=== PATIENT | female | born 1995 | race African-American/Black ===

== ENCOUNTER 2022-11-02 20:01 | Emergency (ER) | payer MEDICAID, OTHER ==
[~2022-11-02] VITALS: Ht 167.7 cm; Wt 76.7 kg
[2022-11-02 20:10] VITALS: BP 133/83
[2022-11-02 20:31] LABS: BILIRUBIN,URINE NEGATIVE (NEGATIVE); COLOR,URINE YELLOW; GLUCOSE, URINE (UA) NEGATIVE (NEGATIVE); KETONES,URINE TRACE (NEGATIVE); LEUKOCYTE ESTERASE ,URINE 1+ (NEGATIVE); NITRITE,URINE NEGATIVE (NEGATIVE); PROTEIN,URINE NEGATIVE (NEGATIVE)
[2022-11-02 20:33] LABS: BACTERIA,URINE LARGE /HPF; CLARITY,URINE SLIGHT CLOUDY; SQUAMOUS EPITHELIAL CELL,UR >50 /HPF; WBC,URINE 25-50 /HPF
[2022-11-02] MEDS ORDERED: FLUC100T PO (20:36)
--- NOTE | 2022-11-02 20:36 | ED GU-Female ---
General Chief Complaint: - Reproductive Stated Complaint: VAGINAL DISCHARGE Nursing Triage Note: Pt presents with c/o vaginal discharge for approx 1 month. She reports hx of frequent yeast infections. She states she's been sexually active with a new boyfriend and the discharge she's been experiancing is different that her usual yeast infection. Source: patient Exam Limitations: no limitations History of Present Illness Date Seen by Provider: Nov 02, 2022 Time Seen by Provider: 20:15 Initial Comments Patient is a 27-year-old female presents with vaginal discharge for approximately 1 month. Patient reports vaginal itching and odor. Reports frequent yeast infections. She has recently changed boyfriends and states she is concerned that discharge is different than her usual yeast infection. No medications or therapies taken prior to ED arrival. No urinary frequency urgency dysuria or burning. Timing/Duration: intermittent Severity/Quality: other Location: other Radiation: other Allergies and Home Medications Patient Home Medication List Home Medication List Reviewed: Yes Review of Systems Review of Systems Constitutional: see HPI Genitourinary: see HPI Past Kpmjcff-Ohbwqe-Njasmv Hx Patient Social History Tobacco Use?: No Immunizations Up To Date Influenza Vaccine Up-to-Date: No; Not Current Past Medical History Last Menstrual Period: Oct 24, 2022 Physical Exam Vital Signs Vital Signs - First Documented 11/02/22 20:10 Temp 36.6 Pulse 110 Resp 16 B/P (MAP) 133/83 (100) Capillary Refill : Less Than 3 Seconds Height, Weight, BMI Height: '" Weight: lbs. oz. kg; 27.00 BMI Method: General Appearance: WD/WN, no apparent distress HEENT: PERRL/EOMI Cardiovascular: normal peripheral pulses Respiratory: lungs clear Gastrointestinal: soft Focused Exam Sepsis Stage: Ruled Out Progress/Results/Core Measures Suspected Sepsis SIRS Temperature: Pulse: 110 Respiratory Rate: 16 Blood Pressure 133 /83 Mean: 100 Results/Orders My Orders Orders - ISELA ORTIZ DO Ua Culture If Indicated (11/02/22 20:26) Urine Bedside (11/02/22 20:26) Neis Ramon Dna Urine Test (11/02/22 20:26) Chlamydia Trachomatis Urine (11/02/22 20:26) Vital Signs/I&O 11/02/22 20:10 Temp 36.6 Pulse 110 Resp 16 B/P (MAP) 133/83 (100) Capillary Refill : Less Than 3 Seconds Blood Pressure Mean: 100 Departure Communication (Admissions) Vaginal discharge with concern for possible STD exposure. Will treat empirically and provide treatment for yeast infection. PCP follow-up recommended. Impression Primary Impression: Vaginitis Disposition: HOME, SELF-CARE Condition: Stable Departure-Patient Inst. Decision time for Depature: 20:34 Referrals: NO,LOCAL PHYSICIAN (PCP/Family) Primary Care Physician Patient Instructions: Vaginitis Add. Discharge Instructions: You were evaluated in the emergency department for vaginal discharge. Please fill medications and take as directed and follow-up with your PCP for testing results. All discharge instructions reviewed with patient and/or family. Voiced understanding. Scripts Fluconazole (Diflucan) 100 Mg Tablet 100 MG PO DAILY, #3 TAB Prov: ISELA ORTIZ DO 11/02/22 ISELA ORTIZ DO Nov 02, 2022 20:36
[2022-11-02] MEDS ORDERED: LIDOCAINE 1% INJ 20 ML VIAL INJ ONE (20:45)
[2022-11-02] MEDS ORDERED: AZITHROMYCIN 250 MG TAB (ZITHROMAX) PO SCH (20:45)
[2022-11-02] MEDS ORDERED: cefTRIAXone 250 MG/2.5 ML ML IM ONE (20:45)
[2022-11-03] MEDS ORDERED: AZITHROMYCIN 250 MG TAB (ZITHROMAX) PO SCH (09:00)
== END 2022-11-02 21:00 | disposition home or self-care (01) ==
LOC: ER FS 20:10
DX: N76.0 Acute vaginitis (principal); Z28.310 Unvaccinated for COVID-19
CPT/HCPCS: 36415; 81000; 84703; 87491; 87591; 99284